=== PATIENT | female | born 1975 | race Caucasian/White ===

== ENCOUNTER 2025-02-10 16:25 | Emergency (ER) | payer MEDICAID, SELFPAY ==
[2025-02-10 16:46] VITALS: BP 123/65; PULSE 83; RESP 20; TEMP 36.8; O2SAT 96
--- NOTE | 2025-02-10 16:58 | ED.GENADUL_ITS ---
Discharge Plan Disposition Patient Disposition: Home Condition: Stable Discharge Details Clinical Impression: Bruising Primary Care Provider: Cindy,Local ED Provider: Sharif Miller Home Meds and New Rx's Prescriptions: Continued estradiol [Kim] 0.025 mg/24 hr patch semiweekly 1 patch transdermal .twice per week methimazole 5 mg tablet 5 mg PO DAILY Patient Comments: 5 mg three days in a row then 10 mg 4 days in a row Discharge Instructions Additional Instructions: Your lab work did not show any concerning findings, but a D-dimer which was negative which indicates it is not a blood clot. You can take a daily 81 mg aspirin. Follow-up with your primary care provider if not improving next week and return to the emergency department if you feel more ill or your arm becomes diffusely swollen HPI General Mode of arrival: ambulatory . Date/Time Provider Initiated Documentation: 02/10/25 16:28 . Limitations to Documentation: no limitations . Information obtained by: patient . History of Present Illness 49 year old F presents to the emergency department with the chief complaint of right arm bruise, described as mild, Patient started experiencing this day(s) (1) and it has been constant. No relieving factors improve symptom(s), No exacerbating factors reported . Patient notes no other symptoms.. Patient did receive the following treatments prior to arrival, none Related Data Home Medications ?Medication ?Instructions ?Recorded ?Confirmed estradiol 0.025 mg/24 hr 1 patch transdermal .twice p er week 02/10/25 02/10/25 semiweekly transdermal patch (Kim) methimazole 5 mg tablet 5 mg PO DAILY 02/10/2502/10 Allergies Allergy/AdvReac Type Severity Reaction Status Date / Time No Known Allergies Allergy Verified 02/10/25 16:38 General Stated Complaint: Vascular POONAM: 4 Review of Systems All systems reviewed & are unremarkable except as noted in HPI and below Constitutional Constitutional: Denies chills, Denies fever(s) and Denies weakness Cardiovascular Cardiovascular: Denies chest pain and Denies dyspnea Respiratory Respiratory: Denies cough and Denies dyspnea Gastrointestinal Gastrointestinal: Denies vomiting Integumentary/Breasts Skin/Breast: Reports unusual bruising Neurologic Neurologic: Denies weakness Exam Const General: no acute distress Orientation: alert HENMT Head: normal to inspection Ears: external ears normal General nose exam: external nose normal Mouth: moist mucous membranes Eyes General: appearance normal, both eyes and all related structures Neck Neck: normal visual inspection Resp Effort & Inspection: normal respiratory effort and able to speak in complete sentences Cardio Rate: regular rate Skin General skin exam: ecchymosis Neuro General: patient alert and patient oriented x3 Extrem General: full ROM and capillary refill normal Psych Mental Status: mental status grossly normal Course Vital Signs Vital signs: Vital Signs Temperature 36.8 C 02/10/25 16:46 Pulse 83 02/10/25 16:46 Respiratory Rate 20 02/10/25 16:46 Blood Pressure 123/65 02/10/25 16:46 Pulse Oximetry 96 02/10/25 16:46 Temperature 36.8 C 02/10/25 16:46 Temperature Source Tympanic 02/10/25 16:46 Pulse 83 02/10/25 16:46 Respiratory Rate 20 02/10/25 16:46 Blood Pressure 123/65 02/10/25 16:46 Blood Pressure Position Sitting 02/10/25 16:46 Pulse Oximetry 96 02/10/25 16:46 Oxygen Delivery Method Room Air 02/10/25 16:46 Oxygen Flow Rate 0 02/10/25 16:46 Medical Decision Making 49-year-old female with a history of Graves' disease, who recently started estrogen replacement therapy comes in with bruising in her right forearm she noticed today. Denies any trauma or falls. No fevers or chills, no chest pain or difficulty breathing. She says that she had lab work done to check her thyroid levels within the last week in the right arm but it was in the AC area and her bruising or ecchymosis just inferior to this area. She has a 2 x 3 cm area of ecchymosis anterior forearm just distal to the AC. There is no tenderness or crepitus. There is no swelling of the arm. She has normal radial and ulnar pulses and intact sensation. Suspect this could be related to her needlestick she had when she had blood work done but will check CBC CMP and though I suspicion for DVT is low we will check a D-dimer. Unfortunately ultrasound is not able to be obtained as they are not here and they needed an in-house radiologist with doing DVT studies. Labs are unremarkable, patient is stable. D-dimer negative so I doubt DVT. I offered to order an ultrasound for tomorrow but she declines which I feel is reasonable. She will follow-up with her PCP and return precautions given. Differential Diagnosis Differential Diagnosis: superficial thrombosis, needle stick bruising PFSH All Active Problems (Updated 02/10/25 @ 18:14 by Sharif Miller MD) Bruising (Acute) Social History Smoking/Tobacco Use Status: Never Smoking risk assessment performed?: Yes Alcohol Intake: never Substance use type: does not use
[2025-02-10 17:14] LABS: Abs Immature Grans 0.00 10^3/uL (0.0-0.06); HCT 39.9 % (36.0-46.0); HGB 13.4 g/dL (11.2-15.7); Immature Grans % 0.0 %; MCH 30.2 pg (27.0-33.0); MCHC 33.6 % (32.0-36.0); MCV 90 fL (80-95); MPV 9.2 fL (8.0-11.0); Platelet Count 299 10^3/uL (130-400); RBC 4.43 10^6/uL (3.93-5.22); RDW 12.6 % (11.7-14.6); RDW-SD 41.5 fL; WBC 4.48 10^3/uL (4.4-10.8)
[2025-02-10 17:29] LABS: ALT 20 U/L (14-59); AST 13 U/L (15-37); Albumin 4.2 g/dL (3.4-5.0); Alkaline Phosphatase 72 U/L (46-116); Anion Gap 12.5 mmol/L (3-11); BUN 8 mg/dL (7-18); Bilirubin, Total 0.4 mg/dL (0.2-1.0); CO2 27.5 mmol/L (21.0-32.0); Calcium 9.2 mg/dL (8.5-10.1); Chloride 101 mmol/L (98-107); Estimated GFR 110.65 (mL/min/1.73m2); Glucose 97 mg/dL (74-106); INR 1.1 (0.9-1.1); Magnesium 2.1 mg/dL (1.8-2.4); PTT Activated 23.5 sec (20.6-30.2); Potassium 3.8 mmol/L (3.5-5.1); Prothrombin Time 10.8 sec (9.1-11.1); Sodium 141 mmol/L (136-145); Total Protein 6.7 g/dL (6.4-8.2)
[2025-02-10 17:41] LABS: D-Dimer 219 ng/mlFEU (<500)
== END 2025-02-10 18:32 | disposition home or self-care (01) ==
PROVIDERS: Emergency Provider Emergency Medicine
DX: S40.021A Contusion of right upper arm, initial encounter (principal); X58.XXXA Exposure to other specified factors, initial encounter
CPT/HCPCS: 99283 ×2; 36415; 80053; 83735; 85025; 85379; 85610; 85730